=== PATIENT | male | born 1950 | race Two or more races ===

== ENCOUNTER 2020-06-02 13:25 | Outpatient (CLI) | payer OTHER | END 2020-06-02 13:34 | disposition home or self-care (01) | LOC: NUCLEAR 13:25 | PROVIDERS: ATTEND Radiology Diagnostic Radiology | DX: I87.2 Venous insufficiency (chronic) (peripheral) (principal); I82.890 Acute embolism and thrombosis of other specified veins; M25.441 Effusion, right hand ==

== ENCOUNTER → 2020-06-02 | Outpatient (CLI) | payer OTHER | END | disposition home or self-care (01) | LOC: SONOGRAMA 14:22 | PROVIDERS: ATTEND Radiology Diagnostic Radiology | DX: M25.512 Pain in left shoulder (principal) ==